=== PATIENT | male | born 1965 | race Two or more races ===

== ENCOUNTER 2025-03-30 23:16 | Emergency (ER) | payer BC, OTHER ==
[~2025-03-30] VITALS: Ht 180.3 cm; Wt 104.3 kg
[2025-03-30] MEDS ORDERED: MIDAZOLAM HCL 2 MG/2ML VIAL ONE (23:48)
[2025-03-30] MEDS ORDERED: OLANZAPINE 10 MG VIAL IM ONE (23:48)
[2025-03-30] MEDS: MIDAZOLAM HCL 2 MG/2ML VIAL IM ONE (23:49)
[2025-03-30] MEDS: OLANZAPINE 10 MG VIAL IM ONE (23:49)
[2025-03-31] MEDS: MIDAZOLAM HCL 2 MG/2ML VIAL IM ONE
[2025-03-31 08:14] LABS: PLATELET COUNT (AUTO) 157 K/uL (150-450); RED BLOOD CELL COUNT(AUTO) 4.53 MIL/uL (4.5-6.0); RED CELL DISTRIBUTION WIDTH 15.7 % (11.5-15.0); WHITE BLOOD COUNT (AUTO) 4.8 K/uL (4.3-11.0)
[2025-03-31 08:24] LABS: CALCIUM, SERUM 7.9 mg/dL (8.5-10.1); CREATININE 0.7 mg/dL (0.6-1.3); SODIUM SERUM 143 mmol/L (136-145); UREA NITROGEN, BLOOD 10 mg/dL (7-18)
[2025-03-31 08:44] LABS: ALCOHOL, BLOOD 190 mg/dL (0-10); ASPARTATE AMINOTRANSFERASE 44 U/L (15-37); TOTAL PROTEIN, SERUM 7.3 g/dL (6.4-8.2)
[2025-03-31 09:39] VITALS: BP 135/82; TEMP 98.5; O2SAT 95
== END 2025-03-31 09:41 | disposition home or self-care (01) ==
LOC: ER 23:17
DX: R45.1 Restlessness and agitation (principal); F10.129 Alcohol abuse with intoxication, unspecified; Z20.822 Contact with and (suspected) exposure to COVID-19; Y90.6 Blood alcohol level of 120-199 mg/100 ml
CPT/HCPCS: 99284; 96372 ×2; 85025; 80048; 80076; 36415; 82962; 87426; 80143; 80320; J2250; J3490; G0480